=== PATIENT | male | born 1950 | race Caucasian/White ===

== ENCOUNTER 2019-12-21 07:45 | Inpatient (IN) | payer OTHER ==
[2019-12-21 08:08] LABS: #Basophils 0.1 thou/uL (0.0-0.2); #Eosinphils 0.1 thou/uL (0.0-0.7); #Lymphocytes 4.5 thou/uL (1.20-3.40); #Monocytes 0.6 thou/uL (0.11-0.59); #Neutrophils 7.4 thou/uL (1.40-6.50); %Basophils 1.2 % (0.0-1.0); %Eosinophils 0.8 % (0.0-10.0); %Lymphocytes 35.6 % (21.0-51.0); %Monocytes 4.5 % (0.0-10.0); %Neutrophils 57.9 % (42.0-75.0); Hemoglobin 15.8 g/dL (14.0-18.0); Mean Corpuscular HGB CONC 31.6 g/dL (32.0-36.0); Mean Corpuscular Hemoglobin 27.5 pg (27.0-31.0); Mean Corpuscular Volume 86.9 fL (78.0-98.0); Platelet Count 228 thou/uL (130-400); RBC Distribution Width 12.4 % (11.5-14.5); Red Blood Cell (RBC) Count 5.75 mill/uL (4.70-6.10); White Blood Cell (WBC) Count 12.7 thou/uL (4.8-10.8)
[2019-12-21 08:31] LABS: ALT (SGPT) 11 U/L (8-55); AST (SGOT) 13 U/L (5-34); Albumin 4.6 g/dL (3.4-4.8); Alkaline Phosphatase 79 U/L (40-110); Anion Gap 15 mmol/L (10-20); BUN (Urea Nitrogen) 16 mg/dL (8.4-25.7); Bilirubin, Total 0.9 mg/dL (0.2-1.2); Calc. Creatinine Clearance 0 mL/min (70-130); Calcium 9.9 mg/dL (7.8-10.44); Carbon Dioxide 24 mmol/L (23-31); Chloride 101 mmol/L (98-107); Estimated GFR-MDRD 67; Globulin 3.3 g/dL (2.4-3.5); Glucose 200 mg/dL (80-115); Potassium 3.2 mmol/L (3.5-5.1); Protein, Total 7.9 g/dL (5.8-8.1); Sodium 137 mmol/L (136-145)
--- NOTE | 2019-12-21 08:47 | CT ---
EXAM: CT brain without contrast HISTORY: Ataxia and left-sided sensory changes COMPARISON: None TECHNIQUE: Multiple contiguous axial images were obtained and a CT of the brain without contrast. FINDINGS: The brain is normal in morphology and attenuation without focal lesions or confluent areas of infarction. There is no evidence of hydrocephalus, intracranial hemorrhage, or extra-axial fluid collection. The calvarium and overlying soft tissues are unremarkable. The visualized paranasal sinuses and masto id air cells are well aerated. IMPRESSION: No evidence of acute intracranial abnormality
[2019-12-21] MEDS ORDERED: Aspirin Chewable 81 MG TAB ONE (09:15)
[2019-12-21] MEDS ORDERED: Potassium Chloride 20 MEQ TAB ONE (10:22)
[2019-12-21] MEDS ORDERED: Labetalol HCl 100 MG/20 ML VIAL SLOW IVP PRN (11:07)
[2019-12-21] MEDS ORDERED: HumaLOG 300 UNITS/3 ML VIAL SC PRN (11:26)
[2019-12-21] MEDS ORDERED: Dextrose 5% in Water 1,000 ML IV PRN (11:26)
[2019-12-21] MEDS ORDERED: Dextrose 50% Abboject 50 ML SYRINGE SLOW IVP PRN (11:26)
[2019-12-21] MEDS ORDERED: Lorazepam 2 MG/ML VIAL ONE (11:39)
[2019-12-21] MEDS ORDERED: Lorazepam 2 MG/ML VIAL SLOW IVP SCH (11:45)
--- NOTE | 2019-12-21 12:34 | MRI ---
MRI BRAIN WITHOUT CONTRAST: INDICATIONS: Stroke. COMPARISON: Prior MRI brain dated 01/28/2018. Recent head CT dated 12/21/2019. FINDINGS: Motion artifact degrades all sequences. There is no evidence of restricted diffusion. No evidence of acute infarct. There is volume loss in the superior-anterior left cerebellum, at the site of the previously describe d infarct. The ventricles have normal size and position. Mild ischemic white matter changes, which is poorly robin luated due to motion artifact. Intracranial internal carotid arteries and proximal cerebral arteries show expected flow voids. The p aranasal sinuses appear clear. Focal mucosal edema in the left mastoid air cells. IMPRESSION: No evidence of acute infarct or mass. POS: [facility]
[2019-12-21 13:11] VITALS: BMI 32.3
[2019-12-21] MEDS ORDERED: Clopidogrel Bisulfate 75 MG TAB PO SCH (13:15)
[2019-12-21] MEDS ORDERED: hydrALAZINE 20 MG/ML VIAL SLOW IVP PRN (14:31)
--- NOTE | 2019-12-21 14:36 | PDOC.EVN ---
Event Note - Event Note Event Note: MRI of the head negative. No evidence of CVA. Flu screen pending. Will get CXR, UA. More aggressive treatment of the BP.
[2019-12-21] MEDS ORDERED: hydrALAZINE 20 MG/ML VIAL SLOW IVP SCH (14:45)
--- NOTE | 2019-12-21 15:43 | RAD ---
EXAM: Single view of the chest HISTORY: Leukocytosis COMPARISON: 01/24/2018 FINDINGS: Single view of the chest shows a normal sized cardiomediastinal silhouette. There is no addi dence of consolidation, mass, or pleural effusion. Degenerative changes are seen in the spine. IMPRESSION: No evidence of acute cardiopulmonary disease
[2019-12-21] MEDS ORDERED: Acetaminophen 325 MG TAB PO PRN (17:26)
[2019-12-21] MEDS: Sodium Chloride 0.9% 1,000 ML IV SCH (17:41)
[2019-12-21] MEDS: Enalaprilat Dihydrate 1.25 MG/ML VIAL SLOW IVP SCH (17:44)
--- NOTE | 2019-12-21 18:58 | HP ---
CHIEF COMPLAINT: Possible stroke. 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 The patient at that time had some shaking in his left hand. He went to sleep. The next day, he got up and was walking into some gonzalez, presented to the hospital where a workup confirmed the left cerebellar CVA. He went to rehab and was left with some residual left-sided dysmetria. He is able to ambulate with a walker and is living in independent living in [place]. The patient states for the last couple of weeks, he has been more somnolent than usual, and a couple of days ago, he had a fairly severe headache, took aspirin and seemed to get better. Yesterday, he woke and felt like he had flu-like symptoms, just generally poor. He said he lied around most of the day, took a nap in the afternoon, and awoke and said he actually felt better. He was having some trouble swallowing having worsening difficulties with his balance. He decided if he was not better by today, he would come to the hospital. Today, when he awoke, he felt worse. He was able to get up to the shower. In the shower, he noted that he was not able to feel hot water on his left leg and it felt cold. He had some nausea and dry heaves. He called his family. They came to get him and he was having some dry heaving at that time. He states currently that his nausea is better. In the ER, he was given pills, which he had a very difficult time swallowing and subsequently was given some liquids. I was able to watch him take those and he was continued to have a fair amount of difficulties with throat clearing and therefore that was discontinued. REVIEW OF SYSTEMS: The patient reports up until his symptoms yesterday he has been eating, drinking, bowels have been working. Normal bowel habits. He has had no fevers, no chills. All other systems were reviewed. All pertinent positives and negatives noted in the history of present illness. PAST MEDICAL HISTORY: CVA of the cerebellum as noted above, hypertension, hyperlipidemia, hypothyroidism, residual left-sided dysmetria, and gait disturbance. PAST SURGICAL HISTORY: Right knee surgery. FAMILY HISTORY: Mother at 85 of COPD complications. His father at 60 of lung cancer. SOCIAL HISTORY: Nonsmoker, nondrinker, nondrug user. He is single. He is full code. His daughter would be his surrogate decision maker. Again, he lives at the independent living facility at [place]. ALLERGIES: NONE. MEDICATIONS: 1. Levothyroxine 75 mcg daily. 2. Losartan 50 mg daily. 3. Lovastatin 20 mg daily. 4. Amlodipine 10 mg daily. 5. Aspirin 325 daily. 6. Atorvastatin 40 mg daily. 7. Calcium with vitamin D 2000 units daily. 8. Metformin 500 mg b.i.d. 9. Hydralazine 100 mg daily and 50 mg b.i.d. 10. B12 1000 mcg daily. PHYSICAL EXAMINATION: VITAL SIGNS: Initial BP 181/98, pulse 67, respirations 18, O2 saturation 98% on room air. GENERAL APPEARANCE: Age-appropriate male. He is awake and alert, extremely pleasant. He is in no distress. HEENT: PERRL. No OP lesions. NECK: Supple and symmetric. HEART: Regular rate and rhythm. No murmurs, gallops, or rubs. LUNGS: Clear to auscultation bilaterally with good chest wall expansion and air exchange. ABDOMEN: Soft, nontender, and nondistended. Positive bowel sounds. No masses. No organomegaly. EXTREMITIES: No cyanosis, clubbing, or edema. NEUROLOGIC: The patient appears cognitively intact. His verbal skills are normal. He is speaking clearly. He does clear his throat frequently and seems to have a little bit of a gurgling there. He has normal strength throughout, but does have persistent left-sided dysmetria. PSYCHIATRY: Normal affect and behavior. LABORATORY DATA: White count 12.7, hemoglobin 15.8, platelets 228. Sodium 137, potassium 3.2, chloride 101, CO2 is 24, BUN 16, creatinine 1.09, glucose 200, calcium 9.9, total bilirubin 0.9, AST 13, ALT 11, alkaline phosphatase 79. Troponin 0.019. Albumin is 4.6. CT of the brain shows no evidence of acute intracranial abnormality. EKG shows sinus rhythm at 69 beats per minute, possible septal infarct of indeterminate age. IMPRESSION AND PLAN: 1. Transient ischemic attack versus cerebrovascular accident, appears to be more consistent with cerebrovascular accident at this time, primarily manifest with some dysphagia and worsening left-sided dysmetria. We will admit the patient to the hospital. He did have workup 2 years ago, which I will now repeat with echocardiogram, telemetry, carotid Dopplers. We will keep him on his aspirin. Add some Plavix. Continue high-dose statin. Get consults from PT, OT, Speech Therapy, and Neurology. In the interim, we will keep him n.p.o. as it appears as though he is having a little dysphagia and a risk for aspiration. We will try to get a stat MRI of the brain, mostly because I need to try to be as clear as I can if this is infarct and able to treat his blood pressure appropriately. In the meantime, we will allow permissive hypertension. 2. Diabetes mellitus. Accu-Cheks. Sliding scale insulin. 3. Hypertension. The patient reports he did take all of his usual home medications this morning. He says his blood pressure is highly variable and not clear to anyone why. He is certainly on several aggressive blood pressure medications. At this point, he is n.p.o. We will try to cover with p.r.n. IV medications only, again, in light of the permissive hypertension. 4. Hypothyroidism. Continue p.o. levothyroxine. 5. Hyperlipidemia. He has two different statins listed. We will need to try to get some clarity on his actual medication list. 6. Nausea and vomiting, appears to be resolved at this time. We will continue to monitor, may be blood pressure or stroke related. Job ID: [id number]
[2019-12-21] MEDS: Atorvastatin Calcium 40 MG TAB PO SCH (20:52)
[2019-12-22 00:10] LABS: Bacteria/HPF None Seen HPF (None Seen); Bilirubin Negative (Negative); Blood, Urine Negative (Negative); Clarity Clear (Clear); Glucose, Urine (Dipstick) Normal (Negative); Leukocyte Negative Leu/uL (Negative); Nitrite Negative (Negative); Protein, Urine (Dipstick) 70 mg/dL (Neg-Trace); RBC/HPF 0-3 HPF (0-3); Squamous Epithelial 0-3 HPF (0-3); Urobilinogen Normal mg/dL (Less than 2); WBC/HPF 0-3 HPF (0-3)
[2019-12-22] MEDS: Enalaprilat Dihydrate 1.25 MG/ML VIAL SLOW IVP SCH ×4 (00:29→18:32)
[2019-12-22 05:22] LABS: #Basophils 0.1 thou/uL (0.0-0.2); #Lymphocytes 2.4 thou/uL (1.20-3.40); #Monocytes 0.5 thou/uL (0.11-0.59); #Neutrophils 6.1 thou/uL (1.40-6.50); %Basophils 0.7 % (0.0-1.0); %Eosinophils 0.4 % (0.0-10.0); %Lymphocytes 26.7 % (21.0-51.0); %Monocytes 5.3 % (0.0-10.0); %Neutrophils 66.9 % (42.0-75.0); Hemoglobin 13.8 g/dL (14.0-18.0); Mean Corpuscular HGB CONC 32.5 g/dL (32.0-36.0); Mean Corpuscular Hemoglobin 28.5 pg (27.0-31.0); Mean Corpuscular Volume 87.7 fL (78.0-98.0); Platelet Count 191 thou/uL (130-400); RBC Distribution Width 12.7 % (11.5-14.5); Red Blood Cell (RBC) Count 4.85 mill/uL (4.70-6.10); White Blood Cell (WBC) Count 9.1 thou/uL (4.8-10.8)
[2019-12-22] MEDS: Sodium Chloride 0.9% 1,000 ML IV SCH ×2 (05:42→17:30)
[2019-12-22 05:49] LABS: Anion Gap 14 mmol/L (10-20); BUN (Urea Nitrogen) 22 mg/dL (8.4-25.7); Calc. Creatinine Clearance 99 mL/min (70-130); Calcium 9.1 mg/dL (7.8-10.44); Carbon Dioxide 24 mmol/L (23-31); Cardiac Risk 6.3 (Less than 4.5); Chloride 105 mmol/L (98-107); Cholesterol 188 mg/dl (< 200 Desired); Estimated GFR-MDRD 69; Glucose 111 mg/dL (80-115); HDL Cholesterol 30 mg/dL (>60 Neg Risk); LDL Cholesterol, Calculated 118 mg/dL; Potassium 3.9 mmol/L (3.5-5.1); Sodium 139 mmol/L (136-145); Triglycerides 200 mg/dL (Less than 150)
[2019-12-22] MEDS: Enoxaparin Sodium 40 MG/0.4 ML SYRINGE SC SCH (08:46)
[2019-12-22] MEDS: Aspirin 81 mg Enteric Coated Tablet PO SCH ×2 (08:46→08:54)
[2019-12-22] MEDS: Clopidogrel Bisulfate 75 MG TAB PO SCH (08:46)
--- NOTE | 2019-12-22 13:44 | CON ---
DATE OF CONSULTATION: 12/22/2019 CONSULTING PHYSICIAN: Hospitalist Service. IMPRESSION: 1. Acute vertigo with a negative MRI suggesting inner ear issue. 2. Diabetes. 3. Hypertension. 4. Hyperlipidemia. PLAN: 1. Continue aspirin and a statin. 2. Scopolamine patch. 3. Flu test. HISTORY OF PRESENT ILLNESS: Mr. Workman is a 69-year-old gentleman with reported past history of a stroke years ago resulting in some left-sided deficits. He had not noted any residual deficits for some time now. He was taking a shower and noticed that when he put the hot water on his left leg, he could not sense the temperature very well. He was feeling generally weak and not well imaged and in general with the thought that he might have the flu. He noticed a little perioral numbness on the right. He did not have a headache, nausea, vomiting, lateralized weakness, double vision, slurred speech or difficulty with ptosis. He reports some trouble swallowing that he feels like is new. His MRI of the brain was negative. Laboratory studies were unremarkable other than elevated blood glucose and a cholesterol ratio of 6.3. He was bit hypertensive with diastolics in the high 90s. He is still feeling a little run down today. He had not been out of bed and did go to the restroom today. He notes that when he moves it makes him a bit dizzy. PAST MEDICAL HISTORY: As listed above. ALLERGIES: NONE. SOCIAL HISTORY: No tobacco. FAMILY HISTORY: Noncontributory. MEDICATIONS: List was reviewed. REVIEW OF SYSTEMS: Ten-system review of systems is otherwise negative. PHYSICAL EXAMINATION: VITAL SIGNS: Blood pressure 170/86, pulse 65, respirations 16, and temperature 97.6. HEENT: Pupils equal and reactive. Conjunctivae clear. Oropharynx clear. NECK: Supple. No lymphadenopathy. No weakness noted. EXTREMITIES: No cyanosis or edema. NEUROLOGIC: He was alert and cooperative. His speech is fluent and clear. Cranial nerves 2 through 12 were intact. There was no facial weakness appreciated. Motor strength was full in all 4 extremities. He was able to bring himself to a standing position, but began to complain of dizziness and was listing to the right and he did not have any tremor or dysmetria. SUMMARY: This elderly gentleman with some complaints of some vague illness as well as some dizziness. I would try him on a scope patch and screen him for the flu. I do not see any other acute neurologic issues other than polyps and possible peripheral vestibular dysfunction. Job ID: [id number]
[2019-12-22] MEDS: hydrALAZINE 20 MG/ML VIAL SLOW IVP SCH ×2 (17:22→20:55)
[2019-12-22] MEDS: cloNIDine 0.2mg/24 Hour PATCH TD SCH (17:22)
[2019-12-22] MEDS: Atorvastatin Calcium 40 MG TAB PO SCH (20:54)
[2019-12-22] MEDS ORDERED: Scopolamine 1.5 mg/72 hour Patch TOP SCH (21:00)
--- NOTE | 2019-12-22 22:00 | PDOC.HOSPP ---
- Subjective Subjective: Still feels about the same. He continues to have vertigo. It is positional. Does improve with lack of movement. Discussed with Dr. Ansari. Suspects peripheral vertigo. May have viral issue causing the vertigo and exacerbating the old stroke symptoms. Still cannot swallow. FIRST AID DIRECTOR continues to follow. Sill NPO. BP has continued to be very high. Unable to take his usual po meds. Adding catapres TTS. Changed Hydralazine to scheduled. PRN Labetalol. - Objective Vital Signs & Weight: Vital Signs (12 hours) Temp Pulse Pulse Pulse Resp BP BP 12/22/19 20:55 64 205/99 H 12/22/19 18:57 97.7 F 64 20 12/22/19 18:32 189/90 H 12/22/19 17:22 62 194/94 H 12/22/19 16:17 65 65 187/100 H 12/22/19 15:22 97.8 F 82 16 12/22/19 13:10 74 181/87 H 12/22/19 11:53 188/87 H 12/22/19 11:48 98.1 F 65 16 BP BP Pulse Ox 12/22/19 20:55 12/22/19 18:57 178/86 H 95 12/22/19 18:32 12/22/19 17:22 12/22/19 16:17 220/95 H 12/22/19 15:22 185/91 H 96 12/22/19 13:10 12/22/19 11:53 12/22/19 11:48 188/87 H 94 L Weight Admit Weight 238 lb 9.6 oz Weight 238 lb 9.6 oz I&O: 12/21/19 12/22/19 12/23/19 06:59 06:59 06:59 Intake Total 675 1200 Output Total 150 550 Balance 525 650 Result Diagrams: 12/22/19 04:38 12/22/19 04:38 Additional Labs: Accuchecks 12/22/19 12/22/19 12/22/19 16:37 10:33 05:47 POC Glucose 128 H 126 H 110 Hospitalist ROS - Medication Medications: Active Medications Generic Name Dose Route Start Last Admin Trade Name Freq PRN Reason Stop Dose Admin Aspirin 81 mg 12/22/19 09:00 12/22/19 08:54 Ecotrin PO Not Given DAILY [facility] Atorvastatin Calcium 80 mg 12/21/19 21:00 12/22/19 20:54 Lipitor PO Not Given HS LAURA Clonidine 0.2 mg 12/22/19 17:00 12/22/19 17:22 Klgrnoiq-Hxh-7 TD 0.2 mg Q7DAYS LAURA Administration Clopidogrel Bisulfate 75 mg 12/22/19 09:00 12/22/19 08:46 Plavix PO 75 mg DAILY LAURA Administration Enalaprilat 1.25 mg 12/21/19 18:00 12/22/19 18:32 Vasotec SLOW IVP 1.25 mg Q6HR LAURA Administration Enoxaparin Sodium 40 mg 12/22/19 09:00 12/22/19 08:46 Lovenox SC 40 mg 0900 ALURA Administration Sodium Chloride 1,000 mls @ 100 mls/hr 12/21/19 17:30 12/22/19 17:30 Normal Saline 0.9% IV 1,000 mls .Q10H LAURA Administration Scopolamine 1.5 mg 12/22/19 21:00 12/22/19 20:58 Transderm Scop TOP 1.5 mg Q3D LAURA Administration
[2019-12-23] MEDS: Enalaprilat Dihydrate 1.25 MG/ML VIAL SLOW IVP SCH ×5 (01:05→23:46)
[2019-12-23] MEDS: Sodium Chloride 0.9% 1,000 ML IV SCH ×2 (04:22→13:22)
[2019-12-23] MEDS: Enoxaparin Sodium 40 MG/0.4 ML SYRINGE SC SCH (08:19)
[2019-12-23] MEDS: hydrALAZINE 20 MG/ML VIAL SLOW IVP SCH ×4 (08:21→20:53)
[2019-12-23] MEDS ORDERED: Lorazepam 2 MG/ML VIAL SLOW IVP PRN (13:12)
--- NOTE | 2019-12-23 13:15 | PDOC.HOSPP ---
- Subjective Encounter Date: 12/23/19 Encounter Time: 13:13 Subjective: [place] like he had a piece of tape on his right forehead last night. He picked at that area trying to pull it off. Ultimately, scratched that area. Family was concerned it was a shingles rash. He still has vertigo and some nausea. Still feels flu-like. - Objective Vital Signs & Weight: Vital Signs (12 hours) Temp Pulse Pulse Pulse Resp BP BP 12/23/19 12:42 68 176/81 H 12/23/19 11:49 186/82 H 12/23/19 11:45 98.1 F 69 16 12/23/19 08:55 62 68 147/67 H 12/23/19 08:21 59 L 195/93 H 12/23/19 08:00 97.9 F 59 L 16 12/23/19 06:38 186/84 H 12/23/19 04:00 99 F 72 16 12/23/19 02:11 67 BP BP Pulse Ox 12/23/19 12:42 12/23/19 11:49 12/23/19 11:45 186/82 H 97 12/23/19 08:55 167/77 H 12/23/19 08:21 12/23/19 08:00 186/89 H 96 12/23/19 06:38 12/23/19 04:00 96 12/23/19 02:11 183/88 H Weight Admit Weight 238 lb 9.6 oz Weight 238 lb 9.6 oz I&O: 12/22/19 12/23/19 12/24/19 06:59 06:59 06:59 Intake Total 675 2170 Output Total 150 1250 Balance 525 920 Result Diagrams: 12/22/19 04:38 12/22/19 04:38 Additional Labs: Accuchecks 12/23/19 12/23/19 12/22/19 11:00 05:56 21:45 POC Glucose 116 H 113 H 111 H 12/22/19 16:37 POC Glucose 128 H Hospitalist ROS - Medication Medications: Active Medications Generic Name Dose Route Start Last Admin Trade Name Freq PRN Reason Stop Dose Admin Aspirin 81 mg 12/22/19 09:00 12/22/19 08:54 Ecotrin PO Not Given DAILY [facility] Atorvastatin Calcium 80 mg 12/21/19 21:00 12/22/19 20:54 Lipitor PO Not Given HS LAURA Clonidine 0.2 mg 12/22/19 17:00 12/22/19 17:22 [id number]-Mjx-7 TD 0.2 mg Q7DAYS LAURA Administration Clopidogrel Bisulfate 75 mg 12/22/19 09:00 12/22/19 08:46 Plavix PO 75 mg DAILY LAURA Administration Enalaprilat 1.25 mg 12/21/19 18:00 12/23/19 11:49 Vasotec SLOW IVP 1.25 mg Q6HR LAURA Administration Enoxaparin Sodium 40 mg 12/22/19 09:00 12/23/19 08:19 Lovenox SC 40 mg 0900 LAURA Administration Sodium Chloride 1,000 mls @ 100 mls/hr 12/21/19 17:30 12/23/19 04:22 Normal Saline 0.9% IV 1,000 mls .Q10H LAURA Administration Scopolamine 1.5 mg 12/22/19 21:00 12/22/19 20:58 Transderm Scop TOP 1.5 mg Q3D LAURA Administration - Exam General Appearance: NAD, awake alert Heart: RRR, II/IV Respiratory: CTAB, no wheezes, no rales, no ronchi, normal chest expansion, no tachypnea, normal percussion Gastrointestinal: soft, non-tender, non-distended, normal bowel sounds, no palpable masses, no hepatomegaly, no splenomegaly, no bruit Skin: normal turgor Musculoskeletal: normal tone Psychiatric: normal affect, normal behavior, A&O x 3 Hosp A/P (1) Vertigo Code(s): R42 - DIZZINESS AND GIDDINESS Status: Acute (2) Dysphagia Code(s): R13.10 - DYSPHAGIA, UNSPECIFIED Status: Acute (3) History of cerebrovascular accident (CVA) involving cerebellum Code(s): Z86.73 - PRSNL HX OF TIA (TIA), AND CEREB INFRC W/O RESID DEFICITS Status: Acute (4) HTN (hypertension) Code(s): I10 - ESSENTIAL (PRIMARY) HYPERTENSION Status: Acute (5) HLD (hyperlipidemia) Code(s): E78.5 - HYPERLIPIDEMIA, UNSPECIFIED Status: Acute (6) Hypothyroidism Code(s): E03.9 - HYPOTHYROIDISM, UNSPECIFIED Status: Acute (7) Diabetes mellitus Code(s): E11.9 - TYPE 2 DIABETES MELLITUS WITHOUT COMPLICATIONS Status: Acute - Plan Continues to feel like he has a viral syndrome. Still has movement related vertigo and nausea. No help from scopolamine. Repeat MRI. Lorazepam. Check TSH. ESR, CRP. Change asa to [place]. Has abrasion on right forehead. Does not look like a varicella rash. Could have been paresthesia from shingles and a lesion would have been destroyed from the scratching. Will cover with acyclovir and reassess tomorrow. BP has been extremely difficult. IV Enalaprilat. IV Hydralazine and titrating the dose. Catapres TTS PRN labetalol. Blood sugars well controlled.
[2019-12-23] MEDS: Aspirin 81 mg Enteric Coated Tablet PO SCH (13:19)
[2019-12-23] MEDS ORDERED: Aspirin 300 MG Suppository PR SCH (13:30)
--- NOTE | 2019-12-23 15:36 | MRI ---
EXAM: MRI of the brain without contrast HISTORY: Dysphagia COMPARISON: 12/21/2019 TECHNIQUE: Multiplanar multisequence MR images were obtained of the brain without IV contrast. FINDINGS: Subtle scattered stable foci of high T2/FLAIR signal in the subcortical and periventricular white mat ter are likely secondary to small vessel ischemic disease. There is a 7 mm area of restricted diffusion and high FLAIR signal in the right aspect of the brainst em consistent with an acute infarction. No hydronephrosis. No extra-axial fluid collection or intracranial hemorrhage. The expected flow voids are present. Corpus callosum, pituitary, and craniocervical junction are within normal limits. The calvarium and overlying soft tissues are unremarkable. The paranasal sinuses and mastoid air cells are well aerated. IMPRESSION: Acute right brainstem infarction.
[2019-12-23] MEDS: Clopidogrel Bisulfate 75 MG TAB PO SCH (15:48)
[2019-12-23] MEDS: Ondansetron PF 4 MG/2 ML Vial IVP PRN (15:51)
[2019-12-23] MEDS: SODIUM CHLORIDE 0.9% IVPB SCH ×2 (16:53→23:46)
[2019-12-23] MEDS: ACYCLOVIR SODIUM IVPB SCH ×2 (16:53→23:46)
--- NOTE | 2019-12-23 19:11 | ULT ---
BILATERAL CAROTID DUPLEX ULTRASOUND: 12/23/19 HISTORY: CVA. Real time color Doppler evaluation of the right and left carotid systems was performed. This shows mi ld plaque formation at the origin of the right internal carotid artery and more extensive plaque form ation on the left. On the right side, peak systolic velocities of the common carotid were 147 cm/s. Internal carotid reanna ocities 106 cm/s. External carotid velocities of 170 cm/s. On the left side, peak systolic velocities of the common carotid were 193 cm/s. Internal carotid velo cities were 120 cm/s. External carotid velocities were 114 cm/s. Vertebral flow is antegrade on the left. The right vertebral is never well visualized. IMPRESSION: 1. Elevated velocities in both common carotid arteries without any significant elevation to the velocities in either internal carotid artery. 2. Antegrade left vertebral flow. The right vertebral is not visualized. POS: [facility]
[2019-12-23] MEDS: Atorvastatin Calcium 40 MG TAB PO SCH (20:53)
--- NOTE | 2019-12-24 00:12 | CON ---
DATE OF CONSULTATION: 12/23/2019 HISTORY OF PRESENT ILLNESS: Mr. Workman had some progression in his severity of dysphagia. He has been unable to swallow anything by mouth at this juncture. It was discussed with him whether he wanted a nasogastric tube or to proceed with a PEG tube. He is highly claustrophobic about anything around his face and would rather have a PEG tube. His vertigo is a bit less intense since we started his scopolamine patch. He does have some dry mouth secondary to it. A repeat MRI revealed a right cerebellar peduncle infarct on review on the monitors on the floor. I still did not discern an injury. He had a normal echocardiogram with ejection fraction of 55% to 60%. We have ordered a carotid ultrasound to complete his workup. Once the PEG is in place, we can start oral aspirin and Plavix. Otherwise, hopefully the vertigo will subside over the next few days. I will be available to follow in his care. Job ID: [id number]
--- NOTE | 2019-12-24 01:41 | PDOC.EVN ---
Event Note - Event Note Event Note: Notified by PERFECTO Pena, that patient having allergic reaction at iv site while infusing acyclovir, reports redness and whelps to UE, patient has reduced sensation to affected extremity so unable to gauge itching, denies respiratory distress, no hemodynamic compromise, so stopped acyclovir infusion, medication discontinued, prescribed benadryl and pepcid x 1 dose now.
--- NOTE | 2019-12-24 01:44 | CON ---
DATE OF CONSULTATION: 12/23/2019 REASON FOR CONSULTATION: Dysphagia. 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 He stated he was in his usual state of health until approximately 4 days ago when he had the sudden onset of decreased appetite, lethargy, and flu-like symptoms were that he added that he just felt generally unwell. With worsening of these symptoms in addition to trouble focusing his eyesight and inability to tolerate his pills adequately prompted him to seek healthcare assistance at [facility]. The patient was initially evaluated with an MRI of the brain, which did not show any acute abnormalities, but with his continued/persistent symptoms, a repeat MRI obtained on December 23 showed the presence of an acute right brainstem infarct. During the course of this hospitalization, he has complained of dysphagia with increased coughing/gagging associated with the ingestion of either solid or liquids. He also adds that this has been worsening over the last week prior to admission, again having increased coughing associated with increased intake, but not occurring with every meal. During the course of this hospitalization, he had been evaluated by speech pathology at least initially with concerns for the patient's adequate swallowing ability, but has not been re-evaluated since. Currently, he states that he is feeling somewhat better and denies any nausea, vomiting, fevers, chills, hematemesis, melena, hematochezia, diarrhea, constipation, or odynophagia. REVIEW OF SYSTEMS: A 10-category review of systems was obtained with all responses negative except for the pertinent positives as listed in HPI. PAST MEDICAL HISTORY: As per HPI. PAST SURGICAL HISTORY: Right knee surgery. FAMILY HISTORY: Denies any GI malignancies. SOCIAL HISTORY: Denies any tobacco, alcohol, or illicit drug use. OUTPATIENT MEDICATIONS: Reviewed. ALLERGIES: NO KNOWN DRUG ALLERGIES. PHYSICAL EXAMINATION: VITAL SIGNS: Temperature 98.3, pulse 78, blood pressure 115/56, respiratory rate 20, saturating 91% on room air. GENERAL: The patient was lying in bed, in no acute distress. Alert and oriented x3. HEENT: Normocephalic, atraumatic. NECK: Supple. No JVD or scleral icterus noted. CARDIOVASCULAR: Regular rate and rhythm with no discernible murmurs, gallops, or rubs. RESPIRATORY: Clear to auscultation bilaterally with no discernible wheezes or rales. ABDOMEN: Normoactive bowel sounds. Soft, nontender, nondistended. EXTREMITIES: No cyanosis, clubbing, or edema. LABORATORY DATA: CBC with a white blood cell count of 9.1, hemoglobin 13.8, hematocrit 42.5, platelets 191. Chemistry with a sodium of 139, potassium 3.9, chloride 105, CO2 of 24, BUN 22, creatinine 1.06, glucose 111, AST 13, ALT 11, alkaline phosphatase 79, total bilirubin 0.9. IMAGING DATA: MRI brain obtained on December 16, 2019 showed subtle scattered stable foci of high T2/FLAIR signal in the subcortical and periventricular white matter, likely secondary to small-vessel ischemic disease. However, there was a 7 mm area of restricted diffusion and high FLAIR signal in the right aspect of the brainstem consistent with an acute infarction. There were no extra-axial fluid collections or intracranial hemorrhage noted. ASSESSMENT AND PLAN: The patient is a 69-year-old male with past medical history of cerebellar cerebrovascular accident with residual left-sided dysmetria and gait disturbance, hypertension, hyperlipidemia, and hypothyroidism, presenting with a new right brainstem infarction and new onset dysphagia concerning for oropharyngeal dysphagia. Oropharyngeal dysphagia. The patient has a longstanding history of stroke/cerebrovascular accident with a large one being in January 2018, leaving left-sided dysmetria and gait disturbance. However, he had been doing well and was in his usual state well health until approximately 1 week ago when he began having difficulty swallowing pills in addition to both solid and liquid foods. This would not occur with every ingested foodstuff. but was occurring on a more frequent basis and induced coughing/gagging with certain food consistencies (usually more thin liquids). During speech pathology evaluation during this admission, he did have an initial evaluation that was concerning for the presence of oropharyngeal dysphagia, but subsequent attempts to follow this up were unsuccessful thus far. At this point, his clinical history does sound consistent with oropharyngeal dysphagia secondary to a new right brainstem infarct. However, I would like to confirm his lack of ability to protect his airway with a modified barium swallow study prior to proceeding with a percutaneous gastrostomy tube. Recommendations: 1. We will keep the patient n.p.o. for now in preparation for swallow study. 2. I will order the modified barium swallow study and if the patient shows evidence of aspiration, would be considered a good candidate for PEG tube placement. 3. If the patient does fail his modified barium swallow study tomorrow, then we could put the PEG tube in as soon as . 4. Given his concurrent diagnosis of stroke, but with resultant dysphagia, the patient will need to be off clopidogrel for at least 5 days prior to the procedure. I will discontinue this medication now with plans to bridge patient with other means (we will defer to primary team for that). We will continue to follow. Please call with any questions. Job ID: [id number]
[2019-12-24] MEDS ORDERED: Famotidine 20 MG TAB PO SCH (01:45)
[2019-12-24] MEDS ORDERED: diphenhydrAMINE 25 MG CAP PO SCH (01:45)
[2019-12-24] MEDS ORDERED: Bacteriostatic Water 30 ML VIAL FS PRN (01:49)
[2019-12-24] MEDS ORDERED: methylPREDNISolone Sod Succ/PF 125 MG/2 ML VIAL IVP SCH (02:00)
[2019-12-24] MEDS ORDERED: diphenhydrAMINE 50 MG/ML VIAL IVP SCH (02:00)
[2019-12-24 04:50] LABS: #Lymphocytes 0.7 thou/uL (1.20-3.40); #Monocytes 0.3 thou/uL (0.11-0.59); #Neutrophils 7.4 thou/uL (1.40-6.50); %Basophils 0.5 % (0.0-1.0); %Eosinophils 0.2 % (0.0-10.0); %Lymphocytes 8.2 % (21.0-51.0); %Monocytes 3.3 % (0.0-10.0); %Neutrophils 87.9 % (42.0-75.0); Hemoglobin 13.5 g/dL (14.0-18.0); Mean Corpuscular HGB CONC 32.2 g/dL (32.0-36.0); Mean Corpuscular Hemoglobin 28.5 pg (27.0-31.0); Mean Corpuscular Volume 88.4 fL (78.0-98.0); Mean Platelet Volume 8.2 fL (7.4-10.4); Platelet Count 174 thou/uL (130-400); RBC Distribution Width 12.7 % (11.5-14.5); Red Blood Cell (RBC) Count 4.74 mill/uL (4.70-6.10); White Blood Cell (WBC) Count 8.4 thou/uL (4.8-10.8)
[2019-12-24 05:14] LABS: ALT (SGPT) 8 U/L (8-55); AST (SGOT) 15 U/L (5-34); Albumin 3.8 g/dL (3.4-4.8); Alkaline Phosphatase 66 U/L (40-110); Anion Gap 15 mmol/L (10-20); BUN (Urea Nitrogen) 23 mg/dL (8.4-25.7); Bilirubin, Total 0.9 mg/dL (0.2-1.2); Calc. Creatinine Clearance 74 mL/min (70-130); Calcium 8.8 mg/dL (7.8-10.44); Carbon Dioxide 20 mmol/L (23-31); Chloride 111 mmol/L (98-107); Estimated GFR-MDRD 49; Globulin 2.8 g/dL (2.4-3.5); Glucose 130 mg/dL (80-115); Protein, Total 6.6 g/dL (5.8-8.1); Sodium 142 mmol/L (136-145)
[2019-12-24] MEDS: Enalaprilat Dihydrate 1.25 MG/ML VIAL SLOW IVP SCH (05:37)
[2019-12-24] MEDS: Sodium Chloride 0.9% 1,000 ML IV SCH ×3 (05:37→13:47)
[2019-12-24] MEDS: Aspirin 300 MG Suppository PR SCH (11:06)
[2019-12-24] MEDS: Enoxaparin Sodium 40 MG/0.4 ML SYRINGE SC SCH (11:06)
[2019-12-24] MEDS: Famotidine/PF 20 mg/2ml Vial SLOW IVP SCH (11:07)
[2019-12-24] MEDS: hydrALAZINE 20 MG/ML VIAL SLOW IVP SCH ×5 (11:07→22:21)
--- NOTE | 2019-12-24 14:09 | RAD ---
EXAM: Modified barium swallow with speech therapist HISTORY: Brainstem stroke on the right with dysphasia; feeding difficulties FINDINGS/IMPRESSION: A modified barium swallow was performed by the speech therapist. A video was performed. Penetration w as seen with all tested consistencies. There was significant pooling of the ingested materials just above the upper esophageal sphincter secondary to this energy in this location. This was slightly imp roved with turning the head to the right. Please see dedicated speech therapy report for specific findings and recommendations.
--- NOTE | 2019-12-24 18:47 | PRG ---
DATE OF SERVICE: 12/24/2019 REASON FOR CONSULTATION: Dysphagia secondary to CVA. SUBJECTIVE: Today, the patient states that he is doing well with no acute events or problems overnight. However, he does complain of significantly dry mouth given his n.p.o. status. Earlier today, he underwent a modified barium swallow study and per speech pathology report, had failed all consistencies with concern for penetration/aspiration. Otherwise, he states he is doing well with no stated nausea, vomiting, fevers, chills, GI bleeding, diarrhea, or constipation. OBJECTIVE: VITAL SIGNS: Temperature 97.7, pulse 71, blood pressure 199/87, respiratory rate 20, saturating 97% on room air. GENERAL: The patient was lying in bed, in no acute distress. Alert and oriented x3. CARDIOVASCULAR: 3/6 systolic murmur, best heard at the left upper sternal border. RESPIRATORY: Clear to auscultation bilaterally. ABDOMEN: Normoactive bowel sounds. Soft, nontender, nondistended. EXTREMITIES: No cyanosis, clubbing, or edema. LABORATORY DATA: CBC with a white blood cell count of 8.4, hemoglobin 13.5, hematocrit 42, platelets 174. Chemistry with a sodium of 142, potassium 4, chloride 111, CO2 20, BUN 23, creatinine 1.43, and glucose 130. IMAGING DATA: Modified barium swallow study obtained on 12/24/2019, showed penetration seen with all testing consistency with significant pooling of ingested materials just above the upper esophageal sphincter. Per speech pathology evaluation, the patient is at high risk for aspiration. ASSESSMENT AND PLAN: The patient is a 69-year-old male with past medical history of cerebellar cerebrovascular accident with residual left-sided dysmetria and gait disturbance, hypertension, hyperlipidemia, and hypothyroidism, presenting with a new right brainstem infarction and new onset oropharyngeal dysphagia with evidence of penetration and aspiration. Oropharyngeal dysphagia: The patient has had a previous stroke in January of 2018 with residual left-sided deficits. However, more recently, he suffered an acute right brainstem stroke during this admission with resultant oropharyngeal dysphagia. Modified barium swallow study obtained on 12/24/2019, showed penetration with all consistencies and increased risk of aspiration. RECOMMENDATIONS: 1. We will keep the patient n.p.o. for now until gastrostomy tube placement on Sunday. 2. We will plan for PEG tube placement on Sunday secondary to the patient receiving a dose of clopidogrel. He would need to be off this medication for approximately 4 to 5 days prior to the procedure to prevent any periprocedural complications/bleeding. We will continue to follow. Please call with any questions. Job ID: [id number]
--- NOTE | 2019-12-24 21:31 | PDOC.HOSPP ---
- Subjective Subjective: Doing well overall. Still has swallowing difficulty. Thirsty. No new skin lesions. Denies any SOB. - Objective Vital Signs & Weight: Vital Signs (12 hours) Temp Pulse Resp BP BP Pulse Ox 12/24/19 19:49 97.9 F 62 16 176/73 H 95 12/24/19 17:23 71 199/87 H 12/24/19 15:35 97.7 F 71 20 199/87 H 97 12/24/19 11:47 98.0 F 67 14 145/67 H 93 L 12/24/19 11:07 60 Weight Admit Weight 238 lb 9.6 oz Weight 238 lb 9.6 oz I&O: 12/23/19 12/24/19 12/25/19 06:59 06:59 06:59 Intake Total 2170 700 Output Total 1250 150 250 Balance 920 550 -250 Result Diagrams: 12/24/19 04:27 12/24/19 04:27 Additional Labs: Accuchecks 12/24/19 12/24/19 12/24/19 19:57 16:49 10:38 POC Glucose 129 H 132 H 168 H 12/24/19 06:33 POC Glucose 156 H Hospitalist ROS - Medication Medications: Active Medications Generic Name Dose Route Start Last Admin Trade Name Freq PRN Reason Stop Dose Admin Aspirin 300 mg 12/24/19 09:00 12/24/19 11:06 Aspirin [place] 300 mg DAILY LAURA Administration Atorvastatin Calcium 80 mg 12/21/19 21:00 12/23/19 20:53 Lipitor PO Not Given HS LAURA Clonidine 0.2 mg 12/22/19 17:00 12/22/19 17:22 Fszccmiz-Hdd-4 TD 0.2 mg Q7DAYS LAURA Administration Enoxaparin Sodium 40 mg 12/22/19 09:00 12/24/19 11:06 Lovenox SC 40 mg 0900 LAURA Administration Famotidine 20 mg 12/24/19 09:00 12/24/19 11:07 Pepcid SLOW IVP 20 mg DAILY LAURA Administration Hydralazine HCl 30 mg 12/23/19 17:00 12/24/19 17:23 Apresoline SLOW IVP 30 mg QID LAURA Administration Sodium Chloride 1,000 mls @ 50 mls/hr 12/24/19 12:15 12/24/19 13:47 Normal Saline 0.9% IV Not Given .Q20H LAURA Lorazepam 1 mg 12/23/19 13:12 12/23/19 14:56 Ativan SLOW IVP 1 mg Q4H PRN Administration Dizziness Ondansetron HCl 4 mg 12/23/19 13:13 12/23/19 15:51 Zofran IVP 4 mg Q6H PRN Administration Nausea/Vomiting Scopolamine 1.5 mg 12/22/19 21:00 12/22/19 20:58 Transderm Scop TOP 1.5 mg Q3D LAURA Administration - Exam General Appearance: NAD, awake alert Heart: RRR, no murmur, no gallops, no rubs, normal peripheral pulses Respiratory: CTAB, no wheezes, no rales, no ronchi, normal chest expansion, no tachypnea, normal percussion Gastrointestinal: soft, non-tender, non-distended, normal bowel sounds, no palpable masses, no hepatomegaly, no splenomegaly, no bruit Extremities: no cyanosis, no clubbing, no edema Musculoskeletal: normal tone, normal strength, no muscle wasting Psychiatric: normal affect, normal behavior, A&O x 3 Hosp A/P (1) Brainstem stroke Code(s): I63.9 - CEREBRAL INFARCTION, UNSPECIFIED Status: Acute (2) Vertigo Code(s): R42 - DIZZINESS AND GIDDINESS Status: Acute (3) Dysphagia Code(s): R13.10 - DYSPHAGIA, UNSPECIFIED Status: Acute (4) History of cerebrovascular accident (CVA) involving cerebellum Code(s): Z86.73 - PRSNL HX OF TIA (TIA), AND CEREB INFRC W/O RESID DEFICITS Status: Acute (5) HTN (hypertension) Code(s): I10 - ESSENTIAL (PRIMARY) HYPERTENSION Status: Acute (6) HLD (hyperlipidemia) Code(s): E78.5 - HYPERLIPIDEMIA, UNSPECIFIED Status: Acute (7) Hypothyroidism Code(s): E03.9 - HYPOTHYROIDISM, UNSPECIFIED Status: Acute (8) Diabetes mellitus Code(s): E11.9 - TYPE 2 DIABETES MELLITUS WITHOUT COMPLICATIONS Status: Acute - Plan Still has movement related vertigo and nausea. Says it is a little better. No help from scopolamine. Repeat MRI revealed brainstem CVA. Lorazepam. Change asa to [place]. Has abrasion on right forehead. Does not look like a varicella rash. Had reaction to acyclovir. DC'd. BP has been extremely difficult. IV Enalaprilat. IV Hydralazine and titrating the dose. Catapres TTS PRN labetalol. Has some renal insufficiency. Will stop the enalapril. Sats borderline. CXR to assess for volume overload and aspiration. Blood sugars well controlled.
[2019-12-24] MEDS: Atorvastatin Calcium 40 MG TAB PO SCH (22:34)
[2019-12-25] MEDS ORDERED: diphenhydrAMINE 25 MG in Sodium Chloride 0.9% 50 ML IVPB SCH (00:15)
[2019-12-25] MEDS: Labetalol HCl 100 MG/20 ML VIAL SLOW IVP PRN (00:29)
[2019-12-25] MEDS: Sodium Chloride 0.9% 1,000 ML IV SCH (00:30)
[2019-12-25 05:25] LABS: Anion Gap 13 mmol/L (10-20); BUN (Urea Nitrogen) 31 mg/dL (8.4-25.7); Calc. Creatinine Clearance 77 mL/min (70-130); Calcium 8.7 mg/dL (7.8-10.44); Carbon Dioxide 20 mmol/L (23-31); Chloride 113 mmol/L (98-107); Estimated GFR-MDRD 52; Glucose 109 mg/dL (80-115); Potassium 3.7 mmol/L (3.5-5.1); Sodium 142 mmol/L (136-145)
[2019-12-25] MEDS ORDERED: diphenhydrAMINE 50 MG/ML VIAL IVP SCH (05:59)
[2019-12-25] MEDS: methylPREDNISolone Sod Succ 40 MG VIAL IVP SCH ×3 (06:46→21:45)
[2019-12-25] MEDS: Aspirin 300 MG Suppository PR SCH (10:11)
[2019-12-25] MEDS: Enoxaparin Sodium 40 MG/0.4 ML SYRINGE SC SCH (10:11)
[2019-12-25] MEDS: Famotidine/PF 20 mg/2ml Vial SLOW IVP SCH (10:11)
[2019-12-25] MEDS: hydrALAZINE 20 MG/ML VIAL SLOW IVP SCH ×4 (10:11→21:45)
--- NOTE | 2019-12-25 16:35 | PDOC.HOSPP ---
- Subjective Subjective: Still having some positional vertigo. Taking occ. ice chips. Doing ok with that. Still has very dry mouth. Can't tell that the scopolamine patch is very helpful. - Objective Vital Signs & Weight: Vital Signs (12 hours) Temp Pulse Resp BP Pulse Ox 12/25/19 16:05 98.0 F 17 186/81 H 96 12/25/19 11:42 98.0 F 64 17 169/87 H 96 12/25/19 10:11 55 L 12/25/19 07:58 98.6 F 55 L 16 197/86 H 98 Weight Admit Weight 238 lb 9.6 oz Weight 238 lb 9.6 oz I&O: 12/24/19 12/25/19 12/26/19 06:59 06:59 06:59 Intake Total 700 545 Output Total 150 400 Balance 550 145 Result Diagrams: 12/24/19 04:27 12/25/19 04:37 Additional Labs: Accuchecks 12/25/19 12/25/19 12/24/19 10:37 06:08 19:57 POC Glucose 151 H 110 129 H 12/24/19 16:49 POC Glucose 132 H Hospitalist ROS - Medication Medications: Active Medications Generic Name Dose Route Start Last Admin Trade Name Freq PRN Reason Stop Dose Admin Aspirin 300 mg 12/24/19 09:00 12/25/19 10:11 Aspirin MS 300 mg DAILY LAURA Administration Atorvastatin Calcium 80 mg 12/21/19 21:00 12/24/19 22:34 Lipitor PO Not Given HS LAURA Clonidine 0.2 mg 12/22/19 17:00 12/22/19 17:22 Jhkyiayh-Bvn-8 TD 0.2 mg Q7DAYS LAURA Administration Enoxaparin Sodium 40 mg 12/22/19 09:00 12/25/19 10:11 Lovenox SC 40 mg 0900 LAURA Administration Famotidine 20 mg 12/24/19 09:00 12/25/19 10:11 Pepcid SLOW IVP 20 mg DAILY LAURA Administration Hydralazine HCl 30 mg 12/23/19 17:00 12/25/19 13:12 Apresoline SLOW IVP 30 mg QID LAURA Administration Labetalol HCl 10 mg 12/22/19 16:46 12/25/19 00:29 Normodyne SLOW IVP 10 mg Q4H PRN Administration SBP Greater Than 180 Lorazepam 1 mg 12/23/19 13:12 12/23/19 14:56 Ativan SLOW IVP 1 mg Q4H PRN Administration Dizziness Methylprednisolone Sodium Succinate 60 mg 12/25/19 06:00 12/25/19 15:07 Solu-Medrol IVP 12/26/19 22:01 60 mg Q8HR LAURA Administration Ondansetron HCl 4 mg 12/23/19 13:13 12/23/19 15:51 Zofran IVP 4 mg Q6H PRN Administration Nausea/Vomiting Scopolamine 1.5 mg 12/22/19 21:00 12/22/19 20:58 Transderm Scop TOP 1.5 mg Q3D LAURA Administration Sodium Chloride 10 ml 12/21/19 11:07 12/25/19 10:11 Flush - Normal Saline IVF 10 ml PRN PRN Administration Saline Flush - Exam General Appearance: NAD, awake alert Heart: RRR, no gallops, no rubs, normal peripheral pulses, II/IV Respiratory: CTAB, no wheezes, no rales, no ronchi, normal chest expansion, no tachypnea, normal percussion Gastrointestinal: soft, non-tender, non-distended, normal bowel sounds, no palpable masses, no hepatomegaly, no splenomegaly, no bruit Extremities: no cyanosis, no clubbing, no edema Skin: normal turgor, no lesions, no rashes Neurological: cranial nerve grossly intact, no focal deficits Musculoskeletal: normal tone, normal strength, no muscle wasting Hosp A/P (1) Brainstem stroke Code(s): I63.9 - CEREBRAL INFARCTION, UNSPECIFIED Status: Acute (2) Vertigo Code(s): R42 - DIZZINESS AND GIDDINESS Status: Acute (3) Dysphagia Code(s): R13.10 - DYSPHAGIA, UNSPECIFIED Status: Acute (4) History of cerebrovascular accident (CVA) involving cerebellum Code(s): Z86.73 - PRSNL HX OF TIA (TIA), AND CEREB INFRC W/O RESID DEFICITS Status: Acute (5) HTN (hypertension) Code(s): I10 - ESSENTIAL (PRIMARY) HYPERTENSION Status: Acute (6) HLD (hyperlipidemia) Code(s): E78.5 - HYPERLIPIDEMIA, UNSPECIFIED Status: Acute (7) Hypothyroidism Code(s): E03.9 - HYPOTHYROIDISM, UNSPECIFIED Status: Acute (8) Diabetes mellitus Code(s): E11.9 - TYPE 2 DIABETES MELLITUS WITHOUT COMPLICATIONS Status: Acute (9) JOSUE (acute kidney injury) Code(s): N17.9 - ACUTE KIDNEY FAILURE, UNSPECIFIED Status: Acute - Plan Still has movement related vertigo and nausea. Says it is a little better. No help from scopolamine. Causing dry mouth. Will DC. Repeat MRI revealed brainstem CVA. Lorazepam. Change asa to [place]. Has abrasion on right forehead. Does not look like a varicella rash. Had reaction to acyclovir. DC'd. BP has been extremely difficult. IV Enalaprilat. IV Hydralazine and titrating the dose. Catapres TTS PRN labetalol. Has some renal insufficiency. Stopped IV enalapril. Better today. Sats borderline. CXR was clear. Blood sugars well controlled. Failed swallow study. Will get PEG tomorrow. Will need rehab after that. [facility].
--- NOTE | 2019-12-25 20:16 | PRG ---
DATE OF SERVICE: 12/25/2019 REASON FOR CONSULTATION: Dysphagia secondary to CVA. SUBJECTIVE: Today, the patient states that he did well with no acute events or problems overnight per patient and per nursing staff. He has not had any solid foods per mouth, but was able to consume ice chips with no problems. Currently looking forward to placement of the PEG tube tomorrow. Otherwise, denies any nausea, vomiting, fevers, chills, GI bleeding, diarrhea, or constipation. OBJECTIVE: VITAL SIGNS: Temperature 98, pulse 64, blood pressure 186/81, respiratory rate 17, saturating 96% on room air. GENERAL: The patient was lying in bed, in no acute distress. Alert and oriented x4. CARDIOVASCULAR: 3/6 systolic murmur best heard at the left upper sternal border. RESPIRATORY: Clear to auscultation bilaterally. ABDOMEN: Normoactive bowel sounds. Soft, nontender, nondistended. EXTREMITIES: No cyanosis, clubbing, or edema. LABORATORY DATA: Chemistry with a sodium of 142, potassium 3.7, chloride 113, CO2 of 20, BUN 31, creatinine 1.36, glucose 109. IMAGING DATA: No current GI imaging is available for review. ASSESSMENT AND PLAN: The patient is a 69-year-old male with past medical history of cerebellar cerebrovascular accident with residual left-sided dysmetria and gait disturbance, hypertension, hyperlipidemia, and hypothyroidism, presenting with a new right brainstem infarction and new onset oropharyngeal dysphagia with evidence of penetration and aspiration on swallow study. Oropharyngeal dysphagia. The patient is presenting with an acute right brainstem stroke with resultant oropharyngeal dysphagia. Modified barium swallow study obtained on June 23, 2020, showed penetration with all consistencies and carried an increased risk of aspiration. However, shortly after initial admission of the patient, he was given Plavix as part of anticoagulation therapy with the administration of Plavix at that time, any placement of PEG tube was deemed high risk given increased risk of bleeding. Now that approximately 4 to 5 days have passed since its administration, one can safely proceed with PEG tube with decreased risk of bleeding. RECOMMENDATIONS: 1. Keep the patient n.p.o. until gastrostomy tube placement tomorrow. 2. We will plan for PEG tube placement tomorrow. We will continue to follow. Please call with any questions. Job ID: [id number]
[2019-12-25] MEDS: Atorvastatin Calcium 40 MG TAB PO SCH (23:29)
[2019-12-26] MEDS: Labetalol HCl 100 MG/20 ML VIAL SLOW IVP PRN (01:51)
--- NOTE | 2019-12-26 05:21 | PDOC.EVN ---
Event Note - Event Note Event Note: Called to bedside for attempt to leave AMA by patient, patient with stroke and would do terribly at home in current condition, he is upset at not having food, calmed down after reinforcement of current plan and need to adhere closely to plan as only way to get better, appreciate nursing assistance with trying again to get IV to resume fluids, hopefully once PEG in place will solve a lot of these problems.
[2019-12-26 06:42] LABS: #Lymphocytes 0.9 thou/uL (1.20-3.40); #Monocytes 0.3 thou/uL (0.11-0.59); #Neutrophils 7.7 thou/uL (1.40-6.50); %Basophils 0.1 % (0.0-1.0); %Eosinophils 0.1 % (0.0-10.0); %Lymphocytes 10.2 % (21.0-51.0); %Neutrophils 86.6 % (42.0-75.0); Hemoglobin 14.2 g/dL (14.0-18.0); Mean Corpuscular HGB CONC 32.9 g/dL (32.0-36.0); Mean Corpuscular Hemoglobin 29.5 pg (27.0-31.0); Mean Corpuscular Volume 89.8 fL (78.0-98.0); Mean Platelet Volume 8.7 fL (7.4-10.4); Platelet Count 194 thou/uL (130-400); White Blood Cell (WBC) Count 8.9 thou/uL (4.8-10.8)
[2019-12-26 07:00] LABS: Anion Gap 11 mmol/L (10-20); BUN (Urea Nitrogen) 36 mg/dL (8.4-25.7); Calc. Creatinine Clearance 80 mL/min (70-130); Calcium 9.1 mg/dL (7.8-10.44); Carbon Dioxide 24 mmol/L (23-31); Chloride 113 mmol/L (98-107); Estimated GFR-MDRD 54; Glucose 159 mg/dL (80-115); Potassium 3.7 mmol/L (3.5-5.1); Sodium 144 mmol/L (136-145)
[2019-12-26] MEDS: Sodium Chloride 0.9% 1,000 ML IV SCH ×2 (07:07→15:19)
[2019-12-26] MEDS: methylPREDNISolone Sod Succ 40 MG VIAL IVP SCH ×2 (07:54→14:24)
[2019-12-26] MEDS: Famotidine/PF 20 mg/2ml Vial SLOW IVP SCH (08:17)
[2019-12-26] MEDS: hydrALAZINE 20 MG/ML VIAL SLOW IVP SCH ×2 (08:17→14:23)
[2019-12-26] MEDS: Aspirin 300 MG Suppository PR SCH (08:27)
[2019-12-26] MEDS: Enoxaparin Sodium 40 MG/0.4 ML SYRINGE SC SCH (08:27)
[2019-12-26] MEDS ORDERED: PROPOFOL 200 MG/20 ML VIAL ONE (09:19)
[2019-12-26] MEDS ORDERED: Labetalol HCl 100 MG/20 ML VIAL ONE (09:19)
--- NOTE | 2019-12-26 09:37 | PDOC.HOSPP ---
- Subjective Encounter Date: 12/26/19 Encounter Time: 09:30 - Objective Vital Signs & Weight: Vital Signs (12 hours) Temp Pulse Resp BP BP BP Pulse Ox 12/26/19 08:17 64 12/26/19 07:43 98.6 F 64 16 199/88 H 93 L 12/26/19 01:51 69 186/84 H 12/25/19 23:46 97.7 F 68 16 194/88 H 99 12/25/19 21:45 64 186/84 H Weight Admit Weight 108.227 kg Weight 108.227 kg I&O: 12/25/19 12/26/19 12/27/19 06:59 06:59 06:59 Intake Total 545 Output Total 400 Balance 145 Result Diagrams: 12/26/19 06:13 12/26/19 06:13 Additional Labs: Accuchecks 12/26/19 12/25/19 12/25/19 05:47 19:51 16:56 POC Glucose 157 H 139 H 160 H 12/25/19 10:37 POC Glucose 151 H Hospitalist ROS - Medication Medications: Active Medications Generic Name Dose Route Start Last Admin Trade Name Freq PRN Reason Stop Dose Admin Aspirin 300 mg 12/24/19 09:00 12/26/19 08:[address] Not Given DAILY [facility] Atorvastatin Calcium 80 mg 12/21/19 21:00 12/25/19 23:29 Lipitor PO Not Given HS LAURA Clonidine 0.2 mg 12/22/19 17:00 12/22/19 17:22 Gbluwcie-Mhm-7 TD 0.2 mg Q7DAYS LAURA Administration Enoxaparin Sodium 40 mg 12/22/19 09:00 12/26/19 08:27 Lovenox SC Not Given 0900 LAURA Famotidine 20 mg 12/24/19 09:00 12/26/19 08:17 Pepcid SLOW IVP 20 mg DAILY LAURA Administration Hydralazine HCl 30 mg 12/23/19 17:00 12/26/19 08:17 Apresoline SLOW IVP 30 mg QID LAURA Administration Sodium Chloride 1,000 mls @ 120 mls/hr 12/26/19 05:30 12/26/19 07:07 Normal Saline 0.9% IV 1,000 mls .Q8H20M LAURA Administration Labetalol HCl 10 mg 12/22/19 16:46 12/26/19 01:51 Normodyne SLOW IVP 10 mg Q4H PRN Administration SBP Greater Than 180 Lorazepam 1 mg 12/23/19 13:12 12/23/19 14:56 Ativan SLOW IVP 1 mg Q4H PRN Administration Dizziness Methylprednisolone Sodium Succinate 60 mg 12/25/19 06:00 12/26/19 07:54 Solu-Medrol IVP 12/26/19 22:01 60 mg Q8HR LAURA Administration Ondansetron HCl 4 mg 12/23/19 13:13 12/23/19 15:51 Zofran IVP 4 mg Q6H PRN Administration Nausea/Vomiting Sodium Chloride 10 ml 12/21/19 11:07 12/25/19 10:11 Flush - Normal Saline IVF 10 ml PRN PRN Administration Saline Flush - Exam Heart: RRR, no gallops, no rubs, normal peripheral pulses, murmur present ( aortic stenosis) Respiratory: CTAB
[2019-12-26] MEDS ORDERED: hydrALAZINE 25 MG TAB PER TUBE SCH (11:30)
[2019-12-26] MEDS ORDERED: Amlodipine 10 MG TAB PER TUBE SCH (11:30)
--- NOTE | 2019-12-26 14:43 | OP ---
DATE OF PROCEDURE: 12/26/2019 PROCEDURE PERFORMED: Esophagogastroduodenoscopy with percutaneous endoscopic gastrostomy tube placement. PREPROCEDURE DIAGNOSIS: Oropharyngeal dysphagia after cerebrovascular accident. ANESTHESIA: TIVA. ANTIBIOTICS: 2 g Ancef. POSTPROCEDURE DIAGNOSES: 1. Reflux esophagitis, LA Grade . 2. Hiatal hernia. 3. Percutaneous endoscopic gastrostomy tube placement Ponsky pull technique with good placement and second look normal. RECOMMENDATIONS: Start tube feeds, bolus when awake in 1 hour, clean PEG tube with soap and water daily. PROCEDURE IN DETAIL: After the patient was informed of the risks, benefits, and possible complications of endoscopy including perforation, bleeding, reaction to medication, aspiration as well as the risks of PEG tube, intra-abdominal organ injury, infection, and hemorrhage, informed consent was obtained from the patient and family. The patient was brought to endoscopy suite, where he was sedated. A bite block was placed inside the orifice. Once he was comfortable, the endoscope was advanced through the bite block into the esophagus, stomach, and second and third portions of the duodenum. There was LA Grade reflux esophagitis in association with a 5 cm hiatal hernia, sliding type. There were no strictures or lesions at the GE junction. The stomach was entered and found to be normal in forward and retroflexed views except for the hiatal hernia. The duodenum was normal in the 3rd portion. An adequate place for PEG tube placement was identified by transillumination and finger indentation and a PEG tube was placed by Ponsky pull technique. Second look confirmed good placement. The scope was removed. The patient was brought to recovery room in stable condition. Job ID: [id number]
--- NOTE | 2019-12-26 15:08 | PRG ---
DATE OF SERVICE: 12/26/2019 SUBJECTIVE: The patient is doing well. He is slightly sore after his PEG tube placement, but otherwise feeling well. I think he is feeling better in general already just by getting some calories in. He has no other specific complaints. OBJECTIVE: VITAL SIGNS: Temperature is 98.5, pulse 63, blood pressure 174/85. GENERAL APPEARANCE: Age-appropriate male, in no distress. He is awake and alert, pleasant, cooperative. HEENT: Has abrasion over the right eyebrow with an Opsite covering in that areas. HEART: Regular with 2/6 murmur systolic. LUNGS: Clear to auscultation bilaterally. Good chest wall expansion and air exchange. ABDOMEN: Soft, nontender, and nondistended. EXTREMITIES: No significant edema. PSYCH: The patient appears to have normal affect and behavior. NEURO: No focal deficits evident presently. LABORATORY DATA: White count 8.9, hemoglobin 14.2, platelets 194. Sodium 144, potassium 3.7, chloride 113, BUN 36, creatinine 1.32, GFR 54, glucose 149. IMPRESSION AND PLAN: 1. Brainstem cerebrovascular accident, not seen on the patient's initial MRI, but repeat MRI revealed evidence of brainstem infarct. He is on statin. We will get him on Plavix again and resume aspirin as well. Continue PT, OT, speech therapy , and plan on SNF placement. 2. Dysphagia, status post PEG tube placement today. He is started on feeds. We will need to continue to monitor that and get his rate adjusted appropriately. 3. History of diabetes mellitus, doing well. Resuming his metformin, now that he has PEG, we will continue to monitor now that he is back on feeds as well. 4. Possible allergic reaction to acyclovir, which was started for fear of possible zoster which turned out not to be the case. He did receive a dose of acyclovir , had some urticaria, received several doses of IV steroids, discontinuing that now. 5. Severe hypertension. The patient's blood pressure could barely be controlled in phase of the stroke and inability to take his p.o. medications, now getting him back on his usual p.o. regimen. Anticipate it will get significantly better. 6. Hyperlipidemia. Continue atorvastatin 80 mg at bedtime. 7. Vertigo as part of the CVA seems to be improving. I did discontinue his scopolamine patch. 8. Nausea and vomiting associated with the vertigo, seems to be resolved. He has PRN for him as needed. 9. Hypothyroidism, resuming Synthroid. 10. Acute kidney injury, possibly related to high dose of IV enalapril, trying to control his blood pressure, that has been discontinued and his renal function appears to be improving. 11. Disposition. The patient needs to go to rehab. Case Management is working on [facility]. Job ID: [id number] MTDD
[2019-12-26] MEDS: hydrALAZINE 25 MG TAB PER TUBE SCH ×2 (15:21→22:37)
[2019-12-26] MEDS ORDERED: Meclizine HCl 25 MG TAB PO PRN (16:14)
[2019-12-26] MEDS ORDERED: Meclizine HCl 25 MG TAB PER TUBE PRN (16:14)
[2019-12-26] MEDS: Amlodipine 10 MG TAB PER TUBE SCH (22:37)
[2019-12-26] MEDS: metFORMIN 500 MG TAB PER TUBE SCH (22:38)
[2019-12-27] MEDS: Labetalol HCl 100 MG/20 ML VIAL SLOW IVP PRN (00:13)
[2019-12-27] MEDS: Sodium Chloride 0.9% 1,000 ML IV SCH ×3 (00:13→17:59)
[2019-12-27] MEDS: Levothyroxine Sodium 75 MCG TAB PER TUBE SCH (06:17)
[2019-12-27] MEDS: Enoxaparin Sodium 40 MG/0.4 ML SYRINGE SC SCH (08:40)
[2019-12-27] MEDS: Aspirin Chewable 81 MG TAB PER TUBE SCH (08:40)
[2019-12-27] MEDS: Atorvastatin Calcium 40 MG TAB PER TUBE SCH (08:41)
[2019-12-27] MEDS: Pantoprazole 40 MG GRANULES PACKET PER TUBE SCH (08:41)
[2019-12-27] MEDS: hydrALAZINE 25 MG TAB PER TUBE SCH ×3 (08:41→20:57)
[2019-12-27] MEDS: Clopidogrel Bisulfate 75 MG TAB PER TUBE SCH (08:41)
[2019-12-27] MEDS: Cyanocobalamin (Vitamin B-12) 1,000 MCG TAB PER TUBE SCH (08:41)
[2019-12-27] MEDS: metFORMIN 500 MG TAB PER TUBE SCH ×2 (08:42→21:00)
[2019-12-27] MEDS: PARoxetine 20 MG TAB PER TUBE SCH (08:42)
[2019-12-27] MEDS: Multivit, Therapeutic 1 TAB PER TUBE SCH (08:42)
[2019-12-27] MEDS: Losartan 25 MG TAB PER TUBE SCH (08:42)
[2019-12-27] MEDS ORDERED: Aspirin 325 mg Enteric Coated Tablet PO SCH (09:00)
--- NOTE | 2019-12-27 14:04 | PRG ---
DATE OF SERVICE: 12/27/2019 SUBJECTIVE: Mr. Workman is tolerating his tube feeds well. He is awake and interactive, and he has no abdominal pain or nausea. OBJECTIVE: VITAL SIGNS: He is afebrile, pulse 61, blood pressure 181/54. ABDOMEN: His PEG site appears healthy. The abdominal wound is clean. I loosened the external bumper from 3.5 cm to 4.5 cm. There is no tenderness or erythema around the PEG site. He has an abdominal binder over it. IMPRESSION: 1. Oropharyngeal dysphagia status post stroke. 2. Successful placement of percutaneous endoscopic gastrostomy tube yesterday. He is tolerating his feeds well. RECOMMENDATIONS: 1. Continue tube feeds. He can transition to bolus feeds as tolerated. 2. I will sign off. Please call if GI can be of assistance. Job ID: [id number]
[2019-12-27] MEDS: Amlodipine 10 MG TAB PER TUBE SCH (21:00)
--- NOTE | 2019-12-27 21:24 | PDOC.HOSPP ---
- Subjective Encounter Date: 12/27/19 Encounter Time: 11:00 Subjective: no overnight events. This morning, feels generally unwell, vertigo persists, but no new symptoms. - Objective Vital Signs & Weight: Vital Signs (12 hours) Temp Pulse Pulse Pulse Resp BP BP 12/27/19 21:00 63 203/93 H 12/27/19 20:57 63 203/93 H 12/27/19 20:00 97.8 F 65 20 12/27/19 15:54 63 65 193/89 H 12/27/19 15:35 97.6 F 72 16 12/27/19 14:02 61 173/82 H 12/27/19 11:15 97.9 F 61 16 BP BP BP Pulse Ox 12/27/19 21:00 12/27/19 20:57 12/27/19 20:00 175/126 H 98 12/27/19 15:54 179/84 H 12/27/19 15:35 172/82 H 97 12/27/19 14:02 12/27/19 11:15 181/54 H 98 Weight Admit Weight 238 lb 9.6 oz Weight 238 lb 9.6 oz I&O: 12/26/19 12/27/19 12/28/19 06:59 06:59 06:59 Intake Total 3180 1993 Output Total 500 400 Balance 2680 1593 Result Diagrams: 12/26/19 06:13 12/26/19 06:13 Additional Labs: Accuchecks 12/27/19 12/27/19 12/27/19 16:55 10:52 05:38 POC Glucose 160 H 126 H 122 H 12/26/19 21:15 POC Glucose 160 H Hospitalist ROS - Review of Systems Constitutional: denies: fever, chills, sweats, weakness, malaise, other Respiratory: reports: cough. denies: dry, shortness of breath, hemoptysis, SOB with excertion, pleuritic pain, sputum, wheezing, other Cardiovascular: denies: chest pain, palpitations, orthopnea, paroxysmal noc. dyspnea, edema, light headedness, other Gastrointestinal: denies: nausea, vomiting, abdominal pain, diarrhea, constipation, melena, hematochezia, other Skin: denies: rash, lesions, noah, bruising, other Neurological: reports: incoordination Other: vertigo - Medication Medications: Active Medications Generic Name Dose Route Start Last Admin Trade Name Freq PRN Reason Stop Dose Admin Amlodipine Besylate 10 mg 12/26/19 21:00 12/27/19 21:00 Norvasc PER TUBE 10 mg HS LAURA Administration Aspirin 81 mg 12/27/19 09:00 12/27/19 08:40 Aspirin Chewable PER TUBE 81 mg DAILY LAURA Administration Atorvastatin Calcium 40 mg 12/27/19 09:00 12/27/19 08:41 Lipitor PER TUBE 40 mg DAILY LAURA Administration Cholecalciferol 2,000 units 12/27/19 09:00 12/27/19 08:40 Vitamin D3 PER TUBE 2,000 units DAILY LAURA Administration Clonidine 0.2 mg 12/22/19 17:00 12/22/19 17:22 [id number] TD 0.2 mg Q7DAYS LAURA Administration Clopidogrel Bisulfate 75 mg 12/27/19 09:00 12/27/19 08:41 Plavix PER TUBE 75 mg DAILY LAURA Administration Cyanocobalamin 1,000 mcg 12/27/19 09:00 12/27/19 08:41 Vitamin B-12 PER TUBE 1,000 mcg DAILY LAURA Administration Enoxaparin Sodium 40 mg 12/22/19 09:00 12/27/19 08:40 Lovenox SC 40 mg 0900 LAURA Administration Hydralazine HCl 50 mg 12/26/19 15:00 12/27/19 14:02 Apresoline PER TUBE 50 mg 1500 LAURA Administration Hydralazine HCl 50 mg 12/26/19 21:00 12/27/19 20:57 Apresoline PER TUBE 50 mg HS LAURA Administration Hydralazine HCl 100 mg 12/27/19 09:00 12/27/19 08:41 Apresoline PER TUBE 100 mg DAILY LAURA Administration Sodium Chloride 1,000 mls @ 120 mls/hr 12/26/19 05:30 12/27/19 17:59 Normal Saline 0.9% IV 1,000 mls .[id number] LAURA Administration Labetalol HCl 10 mg 12/22/19 16:46 12/27/19 00:13 Normodyne SLOW IVP 10 mg Q4H PRN Administration SBP Greater Than 180 Levothyroxine Sodium 75 mcg 12/27/19 06:00 12/27/19 06:17 Synthroid PER TUBE 75 mcg 0600 LAURA Administration Lorazepam 1 mg 12/23/19 13:12 12/23/19 14:56 Ativan SLOW IVP 1 mg Q4H PRN Administration Dizziness Losartan Potassium 100 mg 12/27/19 09:00 12/27/19 08:42 Cozaar PER TUBE 100 mg DAILY LAURA Administration Metformin HCl 500 mg 12/26/19 21:00 12/27/19 21:00 Glucophage PER TUBE 500 mg BID LAURA Administration Multivitamins 1 tab 12/27/19 09:00 12/27/19 08:42 Theragran PER TUBE 1 tab DAILY LAURA Administration Ondansetron HCl 4 mg 12/23/19 13:13 12/23/19 15:51 Zofran IVP 4 mg Q6H PRN Administration Nausea/Vomiting Pantoprazole Sodium 40 mg 12/27/19 09:00 12/27/19 08:41 Protonix PER TUBE 40 mg DAILY LAURA Administration Paroxetine HCl 40 mg 12/27/19 09:00 12/27/19 08:42 Paxil PER TUBE 40 mg DAILY LAURA Administration Sodium Chloride 10 ml 12/21/19 11:07 12/25/19 10:11 Flush - Normal Saline IVF 10 ml PRN PRN Administration Saline Flush - Exam General Appearance: NAD, awake alert ENT: normocephalic atraumatic Neck: supple, symmetric, no JVD, no thyromegaly, no lymphadenopathy, no carotid bruit Heart: RRR, no gallops, no rubs, murmur present, II/IV Respiratory: CTAB, no wheezes, no rales, no ronchi, normal chest expansion, no tachypnea, normal percussion Gastrointestinal: soft, non-tender, non-distended, normal bowel sounds Gastrointestinal - other findings: PEG in place and surrounding area nonerythematous and nontender; Extremities: no cyanosis, no clubbing, no edema Neurological: no new deficit Psychiatric: normal affect, normal behavior, A&O x 3 Hosp A/P - Plan (1) Brainstem stroke Code(s): I63.9 - CEREBRAL INFARCTION, UNSPECIFIED Status: Acute (2) Vertigo Code(s): R42 - DIZZINESS AND GIDDINESS Status: Acute (3) Dysphagia Code(s): R13.10 - DYSPHAGIA, UNSPECIFIED Status: Acute (4) History of cerebrovascular accident (CVA) involving cerebellum Code(s): Z86.73 - PRSNL HX OF TIA (TIA), AND CEREB INFRC W/O RESID DEFICITS Status: Acute (5) HTN (hypertension) Code(s): I10 - ESSENTIAL (PRIMARY) HYPERTENSION Status: Acute (6) HLD (hyperlipidemia) Code(s): E78.5 - HYPERLIPIDEMIA, UNSPECIFIED Status: Acute (7) Hypothyroidism Code(s): E03.9 - HYPOTHYROIDISM, UNSPECIFIED Status: Acute (8) Diabetes mellitus Code(s): E11.9 - TYPE 2 DIABETES MELLITUS WITHOUT COMPLICATIONS Status: Acute (9) JOSUE (acute kidney injury) Code(s): N17.9 - ACUTE KIDNEY FAILURE, UNSPECIFIED Status: Acute - Plan nausea resolved; vertigo persists and patient and family educated regarding possible persistence of vertigo due to stroke No help from scopolamine. Causing dry mouth. So DCED Blood pressure persistently high despite additional antihypertensives; requires gradual reduction in BP considering nonischemic stroke; considering renal function nearly at baseline / new baseline, will add chlorthalidone Blood sugars well controlled. tolerating PEG feeds; will start bolus feeds Pending placement in inpatient rehab
[2019-12-27] MEDS ORDERED: Chlorthalidone 25 MG TAB PO SCH (22:00)
[2019-12-28] MEDS: Labetalol HCl 100 MG/20 ML VIAL SLOW IVP PRN (00:29)
[2019-12-28] MEDS: Sodium Chloride 0.9% 1,000 ML IV SCH (01:51)
[2019-12-28] MEDS: Levothyroxine Sodium 75 MCG TAB PER TUBE SCH (05:22)
[2019-12-28] MEDS: Enoxaparin Sodium 40 MG/0.4 ML SYRINGE SC SCH (10:06)
[2019-12-28] MEDS: hydrALAZINE 25 MG TAB PER TUBE SCH ×3 (10:07→21:29)
[2019-12-28] MEDS: Chlorthalidone 25 MG TAB PO SCH (10:08)
[2019-12-28] MEDS: PARoxetine 20 MG TAB PER TUBE SCH (10:09)
[2019-12-28] MEDS: Losartan 25 MG TAB PER TUBE SCH (10:09)
[2019-12-28] MEDS: Atorvastatin Calcium 40 MG TAB PER TUBE SCH (10:10)
[2019-12-28] MEDS: Cyanocobalamin (Vitamin B-12) 1,000 MCG TAB PER TUBE SCH (10:10)
[2019-12-28] MEDS: Aspirin Chewable 81 MG TAB PER TUBE SCH (10:10)
[2019-12-28] MEDS: Multivit, Therapeutic 1 TAB PER TUBE SCH (10:11)
[2019-12-28] MEDS: Pantoprazole 40 MG GRANULES PACKET PER TUBE SCH (10:11)
[2019-12-28] MEDS: metFORMIN 500 MG TAB PER TUBE SCH ×2 (10:11→21:32)
[2019-12-28] MEDS: Clopidogrel Bisulfate 75 MG TAB PER TUBE SCH (10:11)
--- NOTE | 2019-12-28 16:29 | PDOC.HOSPP ---
- Subjective Encounter Date: 12/28/19 Encounter Time: 09:00 Subjective: no overnight events. Blood pressure continues to be difficult to control but only recently started additional antihypertensive. Has no complaints. - Objective Vital Signs & Weight: Vital Signs (12 hours) Temp Pulse Resp BP BP BP Pulse Ox 12/28/19 16:24 177/87 H 12/28/19 15:28 97.3 F L 69 14 180/86 H 96 12/28/19 14:50 71 175/70 H 12/28/19 11:18 98.6 F 71 16 172/92 H 95 12/28/19 10:07 63 169/81 H 12/28/19 08:35 182/94 H 12/28/19 07:29 98.0 F 64 16 191/90 H 96 Weight Admit Weight 238 lb 9.6 oz Weight 238 lb 9.6 oz I&O: 12/27/19 12/28/19 12/29/19 06:59 06:59 06:59 Intake Total 3180 2053 530 Output Total 500 1400 400 Balance 2680 653 130 Result Diagrams: 12/26/19 06:13 12/26/19 06:13 Additional Labs: Accuchecks 12/28/19 12/28/19 12/27/19 10:51 05:34 20:51 POC Glucose 126 H 100 153 H 12/27/19 16:55 POC Glucose 160 H Hospitalist ROS - Review of Systems Constitutional: reports: weakness. denies: fever, chills, sweats, malaise, other Respiratory: reports: cough, dry. denies: shortness of breath, hemoptysis, SOB with excertion, pleuritic pain, sputum, wheezing, other Cardiovascular: denies: chest pain, palpitations, orthopnea, paroxysmal noc. dyspnea, edema, light headedness, other Gastrointestinal: denies: nausea, vomiting, abdominal pain, diarrhea, constipation, melena, hematochezia, other Genitourinary: reports: retention. denies: dysuria, hematuria, other Neurological: reports: weakness, incoordination Other: vertigo - Medication Medications: Active Medications Generic Name Dose Route Start Last Admin Trade Name Freq PRN Reason Stop Dose Admin Amlodipine Besylate 10 mg 12/26/19 21:00 12/27/19 21:00 Norvasc PER TUBE 10 mg HS LAURA Administration Aspirin 81 mg 12/27/19 09:00 12/28/19 10:10 Aspirin Chewable PER TUBE 81 mg DAILY LAURA Administration Atorvastatin Calcium 40 mg 12/27/19 09:00 12/28/19 10:10 Lipitor PER TUBE 40 mg DAILY LAURA Administration Chlorthalidone 12.5 mg 12/28/19 09:00 12/28/19 10:08 [place] PO 12.5 mg DAILY LAURA Administration Cholecalciferol 2,000 units 12/27/19 09:00 12/28/19 10:06 Vitamin D3 PER TUBE 2,000 units DAILY LAURA Administration Clonidine 0.2 mg 12/22/19 17:00 12/22/19 17:22 [id number]-2 TD 0.2 mg Q7DAYS LAURA Administration Clopidogrel Bisulfate 75 mg 12/27/19 09:00 12/28/19 10:11 Plavix PER TUBE 75 mg DAILY LAURA Administration Cyanocobalamin 1,000 mcg 12/27/19 09:00 12/28/19 10:10 Vitamin B-12 PER TUBE 1,000 mcg DAILY LAURA Administration Enoxaparin Sodium 40 mg 12/22/19 09:00 12/28/19 10:06 Lovenox SC 40 mg 0900 LAURA Administration Hydralazine HCl 50 mg 12/26/19 21:00 12/27/19 20:57 Apresoline PER TUBE 50 mg HS LAURA Administration Hydralazine HCl 100 mg 12/27/19 09:00 12/28/19 10:07 Apresoline PER TUBE 100 mg DAILY LAURA Administration Hydralazine HCl 100 mg 12/28/19 15:00 12/28/19 14:50 Apresoline PER TUBE 100 mg 1500 LAURA Administration Labetalol HCl 10 mg 12/22/19 16:46 12/28/19 00:29 Normodyne SLOW IVP 10 mg Q4H PRN Administration SBP Greater Than 180 Levothyroxine Sodium 75 mcg 12/27/19 06:00 12/28/19 05:22 Synthroid PER TUBE 75 mcg 0600 LAURA Administration Lorazepam 1 mg 12/23/19 13:12 12/23/19 14:56 Ativan SLOW IVP 1 mg Q4H PRN Administration Dizziness Losartan Potassium 100 mg 12/27/19 09:00 12/28/19 10:09 Cozaar PER TUBE 100 mg DAILY LAURA Administration Metformin HCl 500 mg 12/26/19 21:00 12/28/19 10:11 Glucophage PER TUBE Not Given BID [facility] Multivitamins 1 tab 12/27/19 09:00 12/28/19 10:11 Theragran PER TUBE 1 tab DAILY LAURA Administration Ondansetron HCl 4 mg 12/23/19 13:13 12/23/19 15:51 Zofran IVP 4 mg Q6H PRN Administration Nausea/Vomiting Pantoprazole Sodium 40 mg 12/27/19 09:00 12/28/19 10:11 Protonix PER TUBE 40 mg DAILY LAURA Administration Paroxetine HCl 40 mg 12/27/19 09:00 12/28/19 10:09 Paxil PER TUBE 40 mg DAILY LAURA Administration Sodium Chloride 10 ml 12/21/19 11:07 12/28/19 10:12 Flush - Normal Saline IVF 10 ml PRN PRN Administration Saline Flush - Exam General Appearance: NAD, awake alert ENT: normocephalic atraumatic, no oropharyngeal lesions Heart: RRR, no gallops, no rubs, murmur present, II/IV Respiratory: CTAB, no wheezes, no rales, no ronchi, normal chest expansion, no tachypnea Gastrointestinal: soft, non-tender, non-distended Gastrointestinal - other findings: PEG in place; tolerating bolus feeds Extremities: no edema Psychiatric: normal affect, normal behavior, A&O x 3 Hosp A/P - Plan (1) Brainstem stroke Code(s): I63.9 - CEREBRAL INFARCTION, UNSPECIFIED Status: Acute (2) Vertigo Code(s): R42 - DIZZINESS AND GIDDINESS Status: Acute (3) Dysphagia Code(s): R13.10 - DYSPHAGIA, UNSPECIFIED Status: Acute (4) History of cerebrovascular accident (CVA) involving cerebellum Code(s): Z86.73 - PRSNL HX OF TIA (TIA), AND CEREB INFRC W/O RESID DEFICITS Status: Acute (5) HTN (hypertension) Code(s): I10 - ESSENTIAL (PRIMARY) HYPERTENSION Status: Acute (6) HLD (hyperlipidemia) Code(s): E78.5 - HYPERLIPIDEMIA, UNSPECIFIED Status: Acute (7) Hypothyroidism Code(s): E03.9 - HYPOTHYROIDISM, UNSPECIFIED Status: Acute (8) Diabetes mellitus Code(s): E11.9 - TYPE 2 DIABETES MELLITUS WITHOUT COMPLICATIONS Status: Acute (9) JOSUE (acute kidney injury) Code(s): N17.9 - ACUTE KIDNEY FAILURE, UNSPECIFIED Status: Acute - Plan Tolerating bolus feeds; Blood pressure remains elevated, stopped IVF, started chlorthalidone, and increased hydralazine (3pm dose) to 100mg. Will continue to follow. Pending placement in [facility]
[2019-12-28] MEDS: Amlodipine 10 MG TAB PER TUBE SCH (21:32)
[2019-12-29] MEDS: Levothyroxine Sodium 75 MCG TAB PER TUBE SCH (05:22)
[2019-12-29 05:29] LABS: Anion Gap 15 mmol/L (10-20); BUN (Urea Nitrogen) 16 mg/dL (8.4-25.7); Calc. Creatinine Clearance 130 mL/min (70-130); Calcium 8.7 mg/dL (7.8-10.44); Carbon Dioxide 25 mmol/L (23-31); Chloride 100 mmol/L (98-107); Estimated GFR-MDRD Greater than 90; Glucose 142 mg/dL (80-115); Magnesium 1.8 mg/dL (1.6-2.6); Potassium 3.5 mmol/L (3.5-5.1); Sodium 136 mmol/L (136-145)
[2019-12-29] MEDS: Losartan 25 MG TAB PER TUBE SCH (09:42)
[2019-12-29] MEDS: hydrALAZINE 25 MG TAB PER TUBE SCH ×2 (09:44→15:06)
[2019-12-29] MEDS: PARoxetine 20 MG TAB PER TUBE SCH (09:45)
[2019-12-29] MEDS: Multivit, Therapeutic 1 TAB PER TUBE SCH (09:45)
[2019-12-29] MEDS: Chlorthalidone 25 MG TAB PO SCH (09:45)
[2019-12-29] MEDS: Clopidogrel Bisulfate 75 MG TAB PER TUBE SCH (09:48)
[2019-12-29] MEDS: Atorvastatin Calcium 40 MG TAB PER TUBE SCH (09:48)
[2019-12-29] MEDS: metFORMIN 500 MG TAB PER TUBE SCH (09:48)
[2019-12-29] MEDS: Aspirin Chewable 81 MG TAB PER TUBE SCH (09:48)
[2019-12-29] MEDS: Pantoprazole 40 MG GRANULES PACKET PER TUBE SCH (09:49)
[2019-12-29] MEDS: Cyanocobalamin (Vitamin B-12) 1,000 MCG TAB PER TUBE SCH (09:49)
[2019-12-29] MEDS: Enoxaparin Sodium 40 MG/0.4 ML SYRINGE SC SCH (09:49)
[2019-12-29] MEDS: Ondansetron PF 4 MG/2 ML Vial IVP PRN (09:51)
[2019-12-29] MEDS: cloNIDine 0.2mg/24 Hour PATCH TD SCH (11:32)
[2019-12-29] MEDS ORDERED: Acetaminophen 325 MG TAB PO PRN (12:38)
[2019-12-29 16:09] VITALS: BP 164/80; TEMP 97.4
--- NOTE | 2019-12-30 12:03 | DIS ---
DATE OF ADMISSION: 12/21/2019 DATE OF DISCHARGE: 12/29/2019 HOSPITAL COURSE: Mr. Workman is a 69-year-old male with medical history of CVA, hypertension, hyperlipidemia, and type 2 diabetes, who presented with vertigo and dysphagia. He was found to have an acute cerebral infarction that was nonhemorrhagic. Following consultation with Neurology, the patient was treated medically. During his inpatient stay, the patient's dysphagia and dysarthria did not improve, sufficiently to safely intake food and liquids, a PEG tube was placed, and the patient responded well to bolus feeding under the instructions of a dietitian. In addition to that, the patient's hypertension was difficult to control, and his antihypertensive medications were adjusted to achieve progressive lowering of his blood pressure. On the day of discharge, blood pressure was better controlled. However, the patient had persistent vertigo and few episodes of nausea and vomiting. Both the patient and his family received education regarding expectations due to possibly permanent nature of the symptoms following a stroke. On the day of discharge today, the patient was hemodynamically stable. Vitals were unremarkable with the exception of mildly elevated blood pressure. PHYSICAL EXAMINATION: GENERAL: Alert, oriented x3, in no apparent distress. ENT: Normocephalic, atraumatic. No oropharyngeal lesions. HEART: Regular rate and rhythm. No gallops, no rubs. Murmur present 2/4, most audible in the right second intercostal space, pansystolic. RESPIRATORY: Clear to auscultation bilaterally. No wheezes, no rales, no rhonchi. Normal chest expansion. GASTROINTESTINAL: Soft, nontender, nondistended. PEG tube in place. No leak or surrounding erythema, tolerating bolus feeds. EXTREMITIES: No edema. PSYCHIATRIC: Normal affect. Normal behavior. Alert and oriented x3. ASSESSMENT AND PLAN: Mr. Workman is a 69-year-old male, who presented with acute nonhemorrhagic cerebellar brainstem stroke. The patient's vertigo and dysphagic symptoms only mildly improved during his inpatient stay, so a PEG tube was placed. In addition to that, the patient's hypertension was difficult to control. He was started on new medication chlorthalidone and his hydralazine dose was increased. On the day of discharge, blood pressure was better controlled. He was discharged after extensive education to him and his family regarding the natural course of his disease, as well as expectations to [facility]. The patient's discharge education lasted 70 minutes. Job ID: [id number]
== END 2019-12-29 19:45 | DRG 65 ==
LOC: ERS 07:45 → OBSVTOIN 09:55 → 2SE 09:55
PROVIDERS: ADMIT Internal Medicine; ATTEND Internal Medicine
PROC: 0DH63UZ Insertion of Feeding Device into Stomach, Percutaneous Approach (ICD-10-PCS; principal; 2019-12-26)
DX: I63.89 Other cerebral infarction (principal); N17.9 Acute kidney failure, unspecified; I69.354 Hemiplegia and hemiparesis following cerebral infarction affecting left non-dominant side; E78.5 Hyperlipidemia, unspecified; I10 Essential (primary) hypertension; E03.9 Hypothyroidism, unspecified; E11.9 Type 2 diabetes mellitus without complications; R13.12 Dysphagia, oropharyngeal phase; R27.8 Other lack of coordination; Z79.02 Long term (current) use of antithrombotics/antiplatelets; K21.0 Gastro-esophageal reflux disease with esophagitis; K44.9 Diaphragmatic hernia without obstruction or gangrene; R40.2362 Coma scale, best motor response, obeys commands, at arrival to emergency department; R40.2142 Coma scale, eyes open, spontaneous, at arrival to emergency department; R40.2252 Coma scale, best verbal response, oriented, at arrival to emergency department; Z98.890 Other specified postprocedural states; Z79.82 Long term (current) use of aspirin; Z79.84 Long term (current) use of oral hypoglycemic drugs; Z79.899 Other long term (current) drug therapy
CPT/HCPCS: 36415; 36416; 70450; 70551; 71045; 74230; 80048; 80053; 80061; 81003; 81015; 83735; 84443; 84484; 85025; 87804; 93005; 93306; 93880; 96374; J0133; J0360; J0690; J1200; J1650; J2060; J2405; J2704; J2920; J2930; J3490; S0028